=== PATIENT | male | born 1980 | race Caucasian/White ===

== ENCOUNTER 2021-10-06 12:39 | Emergency (ER) | payer OTHER ==
[~2021-10-06] VITALS: Ht 190 cm; Wt 102.0 kg
[~2021-10-06 12:39] MED LIST: AMOX500C2 PO; HYDR-3720 PO
--- NOTE | 2021-10-06 12:47 | ED EENT ---
History of Present Illness General Stated Complaint: PAIN IN RT EAR Source: patient Exam Limitations: no limitations History of Present Illness Date Seen by Provider: Oct 06, 2021 Time Seen by Provider: 12:47 Initial Comments 41-year-old male presents for right ear pain that started last night. Sharp stabbing and worse with drinking, yawning or movement of the right jaw. No drainage. No fevers chills. Allergies and Home Medications Allergies Coded Allergies: iodine (Unverified Allergy, Unknown, 09/06/14) Patient Home Medication List Home Medication List Reviewed: Yes Amoxicillin (Amoxicillin) 500 Mg Capsule, 2 EACH PO TID Prescribed by: EMERITA DANIELS on 09/06/14 1159 Hydrocodone Bit/Acetaminophen (Hydrocodone-Apap 10-325 Tablet) 1 Each Tablet, 1 EACH PO Q4-6HR PRN for PAIN Prescribed by: EMERITA DANIELS on 09/06/14 1159 Review of Systems Review of Systems Constitutional: no symptoms reported Eyes: No Symptoms Reported Ears: Pain Nose: no symptoms reported Mouth: no symptoms reported Throat: no symptoms reported Respiratory: no symptoms reported Cardiovascular: no symptoms reported Gastrointestinal: no symptoms reported Musculoskeletal: no symptoms reported Skin: no symptoms reported Neurological: No Symptoms Reported Hematologic/Lymphatic: No Symptoms Reported Immunological/Allergic: no symptoms reported Past Ltbfybe-Tzkbjo-Genxda Hx Patient Social History Tobacco Use?: No Use of E-Cig and/or Vaping dev: No Substance use?: No Alcohol Use?: No Past Medical History Eye Surgery Family Medical History Reviewed Nursing Family Hx No Pertinent Family Hx Physical Exam Vital Signs Vital Signs - First Documented 10/06/21 12:39 Temp 36.6 Pulse 70 Resp 18 B/P (MAP) 141/97 (112) Pulse Ox 98 Height, Weight, BMI Height: 6'2" Weight: 225lbs. oz. 102.484123cm; BMI Method:Stated General Appearance: WD/WN, no apparent distress Eyes: bilateral eye normal inspection, bilateral eye PERRL, bilateral eye EOMI, bilateral eye abnormal EOM, bilateral eye abnormal pupil, bilateral eye A-V nicking, bilateral eye conjunctival hemorrhage, bilateral eye conjunctival inflammation, bilateral eye conjunctivae pale, bilateral eye corneal abrasion, bilateral eye lid inflammation, bilateral eye lid injury, bilateral eye lid injury, bilateral eye foreign body, bilateral eye hyphema, bilateral eye ocular penetration, bilateral eye lateral nystagmus, bilateral eye vertical nystagmus, bilateral eye papilledema, bilateral eye scleral icterus, bilateral eye stye, bilateral eye vision changes, bilateral eye other Ears: right ear TM red, right ear TM bulging; left ear auricle normal, left ear canal normal, left ear TM normal Nose: normal inspection Mouth/Throat: normal mouth inspection, pharynx normal Neck: non-tender, full range of motion, supple, normal inspection Cardiovascular: regular rate, rhythm, no edema, no gallop, no murmur Respiratory: chest non-tender, lungs clear, normal breath sounds, no respiratory distress Gastrointestinal: normal bowel sounds, non tender, soft, no organomegaly Skin: normal color, warm/dry Progress/Results/Core Measures Results/Orders Vital Signs/I&O 10/06/21 12:39 Temp 36.6 Pulse 70 Resp 18 B/P (MAP) 141/97 (112) Pulse Ox 98 Departure Communication (Admissions) Patient is hemodynamically stable. Has obvious otitis on exam. Discharged in stable condition. Impression Primary Impression: Otitis media Qualified Codes: H66.001 - Acute suppurative otitis media without spontaneous rupture of ear drum, right ear Disposition: HOME, SELF-CARE Condition: Stable Departure-Patient Inst. Referrals: NO,LOCAL PHYSICIAN (PCP/Family) Primary Care Physician Patient Instructions: Ear Infections (Otitis Media) in Adults (DC) Add. Discharge Instructions: Take the prescribed antibiotics until they are gone. Use Motrin and Tylenol as needed for pain. Return to the emergency department for any severe concerns. Scripts Amoxicillin (Amoxicillin) 500 Mg Tablet 500 MG PO BID for 7 Days, #14 TAB Prov: CELINA BERRY DO 10/06/21 CELINA BERRY DO Oct 06, 2021 12:47
[2021-10-06] MEDS ORDERED: AMOX500T2 PO (12:57)
[2021-10-06 12:58] VITALS: BP 141/97
== END 2021-10-06 12:58 ==
LOC: EDUNIT# 12:39 → ER 12:42
DX: H66.91 Otitis media, unspecified, right ear (principal); Z28.310 Unvaccinated for COVID-19
CPT/HCPCS: 99282